=== PATIENT | female | born 1940 | race African-American/Black ===

== ENCOUNTER 2017-11-12 15:15 | Emergency (ER) | payer MEDICARE, MEDICAID ==
[~2017-11-12] VITALS: Ht 152.4 cm; Wt 68.0 kg
[2017-11-12] MEDS ORDERED: IBUPROFEN 600MG TABLET PO ONE (19:15)
[2017-11-12 19:33] VITALS: BP 125/56
== END 2017-11-12 19:36 | disposition home or self-care (01) ==
LOC: ER 18:05
DX: S43.401A Unspecified sprain of right shoulder joint, initial encounter (principal); I10 Essential (primary) hypertension; X50.0XXA Overexertion from strenuous movement or load, initial encounter; Y93.89 Activity, other specified; Y92.89 Other specified places as the place of occurrence of the external cause; Y99.8 Other external cause status; Z90.49 Acquired absence of other specified parts of digestive tract
CPT/HCPCS: 73030; 73060; 99284; A4565